=== PATIENT | female | born 1965 | race Hispanic/Latino ===

== ENCOUNTER 2023-11-01 16:46 | Emergency (ER) | payer MEDICAID ==
[~2023-11-01] VITALS: Ht 157.5 cm; Wt 54.9 kg
[2023-11-01 17:13] LABS: ADD UA MICROSCOPIC YES; APPEARANCE,URINE CLEAR (CLEAR); BILIRUBIN,URINE NEGATIVE (NEGATIVE); COLOR,URINE LIGHT-YELLOW (YELLOW); GLUCOSE, URINE (UA) NEGATIVE (NEGATIVE); KETONES,URINE NEGATIVE (NEGATIVE); LEUKOCYTE ESTERASE ,URINE NEGATIVE Leu/uL (NEGATIVE); NITRATE,URINE NEGATIVE (NEGATIVE); OCCULT BLOOD,URINE NEGATIVE (NEGATIVE); PROTEIN,URINE NEGATIVE (NEGATIVE); UROBILINOGEN,URINE 0.2 mg/dL (0.2-1.0)
[2023-11-01 17:13] LABS: BASOPHILS # (AUTO) 0.04 K/uL (0.00-0.20); BASOPHILS % (AUTO) 0.3 % (0.0-5.0); EOSINOPHILS # (AUTO) 0.21 K/uL (0.00-0.70); EOSINOPHILS % (AUTO) 1.5 % (0.0-8.0); HEMATOCRIT 43.9 % (36-48); IMMATURE GRANULOCYTE ABSOLUTE 0.05 K/uL (0-1); LYMPHOCYTES # (AUTO) 6.1 K/uL (1.0-4.8); LYMPHOCYTES % (AUTO) 42.7 % (21.0-51.0); MEAN CORPUSCULAR HEMOGLOBIN 31.6 pg (27.0-33.0); MEAN CORPUSCULAR HGB CONC 35.3 g/dL (32.0-36.0); MEAN CORPUSCULAR VOLUME 89.6 fL (79-99); MONOCYTES # (AUTO) 0.8 K/uL (0.1-1.0); MONOCYTES % (AUTO) 5.5 % (3.0-13.0); NEUTROPHILS # (AUTO) 7.1 K/uL (1.8-7.7); NEUTROPHILS % (AUTO) 49.6 % (40.0-77.0); PLATELET COUNT (AUTO) 350 K/uL (130-400); RED CELL DISTRIBUTION WIDTH 12.1 % (11.0-15.5); WHITE BLOOD COUNT (AUTO) 14.3 K/uL (4.8-10.8)
[2023-11-01 17:16] LABS: SQUAMOUS EPITHELIAL CELL,UR FEW /HPF (0-2); WBC,URINE 0-1 /HPF (0-1)
[2023-11-01 17:30] LABS: CREATININE 0.8 mg/dL (0.5-1.0); POTASSIUM 3.7 mmol/L (3.5-5.1)
[2023-11-01] MEDS: MAG/ALUM/SIMETH 30 ML UDCUP PO ONE (18:21)
[2023-11-01] MEDS: 0.9%NACL 1000ML 1,000 ML IV ONE (18:21)
[2023-11-01] MEDS: DICYCLOMINE HCL 10 MG/5 ML ML PO ONE (18:21)
[2023-11-01] MEDS: METOCLOPRAMIDE 10 MG/2 ML VIAL IVP ONE (18:21)
[2023-11-01] MEDS: FAMOTIDINE 20MG VIAL IV ONE (18:21)
[2023-11-01] MEDS: ONDANSETRON 4MG INJ IVP ONE (18:21)
[2023-11-01] MEDS: LIDOCAINE HCL 2% VISCOUS 15 ML UDCUP PO ONE (18:22)
[2023-11-01] MEDS: MORPHINE 4 MG SYG IVP ONE (18:22)
[2023-11-01] MEDS ORDERED: IOHEXOL-350 75 ML VIAL IV ONE (19:14)
[2023-11-01 20:02] VITALS: BP 160/79; PULSE 83; RESP 16; O2SAT 97
[2023-11-01] MEDS ORDERED: ACET-2079 PO ×2 (20:14→20:15)
[2023-11-01 20:33] LABS: BAND NEUTROPHILS % (MANUAL) 2 % (0-2); EOSINOPHILS % (MANUAL) 1 % (1-6); LYMPHOCYTES % (MANUAL) 29 % (22-44); MAN.DIFF COMMENT-IMPRESSION MANUAL DIFFERENTIAL; MONOCYTES % (MANUAL) 5 % (2-9); REACTIVE LYMPHOCYTES 6 % (0-0); SEGMENTED NEUTROPHILS % 57 % (40-70); TOTAL CELLS COUNTED 100
== END 2023-11-01 20:30 | disposition home or self-care (01) ==
LOC: EDH 16:46
DX: K52.9 Noninfective gastroenteritis and colitis, unspecified (principal); K57.92 Diverticulitis of intestine, part unspecified, without perforation or abscess without bleeding; I10 Essential (primary) hypertension
CPT/HCPCS: 99285; 74177; 96374; 96375; 96361; 80048; 85025; 81001; 36415; 93005; J7030; J2405; J2270; J2765; Q9967; S0028; J3490

== ENCOUNTER 2023-11-10 10:43 | Observation (INO) | payer MEDICAID ==
[2023-11-08 11:59] LABS: BASOPHILS # (AUTO) 0.04 K/uL (0.00-0.20); BASOPHILS % (AUTO) 0.4 % (0.0-5.0); EOSINOPHILS # (AUTO) 0.16 K/uL (0.00-0.70); EOSINOPHILS % (AUTO) 1.8 % (0.0-8.0); IMMATURE GRANULOCYTE ABSOLUTE 0.02 K/uL (0-1); LYMPHOCYTES # (AUTO) 4.3 K/uL (1.0-4.8); MEAN CORPUSCULAR HEMOGLOBIN 30.8 pg (27.0-33.0); MEAN CORPUSCULAR VOLUME 90.5 fL (79-99); MONOCYTES # (AUTO) 0.4 K/uL (0.1-1.0); MONOCYTES % (AUTO) 4.2 % (3.0-13.0); NEUTROPHILS # (AUTO) 4.2 K/uL (1.8-7.7); NEUTROPHILS % (AUTO) 46.4 % (40.0-77.0); PLATELET COUNT (AUTO) 323 K/uL (130-400); RED BLOOD CELL COUNT(AUTO) 4.64 MIL/uL (4.00-5.50); RED CELL DISTRIBUTION WIDTH 12.4 % (11.0-15.5); WHITE BLOOD COUNT (AUTO) 9.1 K/uL (4.8-10.8)
[2023-11-08 12:18] VITALS: BP 112/68; PULSE 61; RESP 18
[2023-11-08 13:34] LABS: CREATININE 0.8 mg/dL (0.5-1.0); POTASSIUM 4.6 mmol/L (3.5-5.1)
[~2023-11-10] VITALS: Ht 157.5 cm; Wt 55.2 kg
[~2023-11-10 10:43] MED LIST: ALBU18HF7 IH; AMLO-258 PO; CETI10TA57 PO; FAMO40TA7 PO; HYDR-3422 PO; LOSA100T59 PO; METO10TA3 PO; PANT40TA54 PO; PROM25TA7 PO; ROSU10TA28 PO; ZOLP10TA2 PO; [UNRECOGNIZED DRUG - OTHER] PO; diclofenac TP
[2023-11-10] MEDS: METRONIDAZOLE 500MG/100ML BAG 200 ML ONE (11:12)
[2023-11-10] MEDS: CEFAZOLIN SODIUM 2 GM VIAL ONE (11:12)
[2023-11-10] MEDS: LACTATED RINGERS 1000ML 1,000 ML IV ONE (11:13)
[2023-11-10 11:20] VITALS: BP 136/79; PULSE 104; RESP 18
[2023-11-10] MEDS: MEPERIDINE-PF 25 MG/ML SYG IVP ONE (17:04)
[2023-11-10] MEDS: MEPERIDINE-PF 25 MG/ML SYG ONE (18:09)
[2023-11-10] MEDS: ACETAMINOPHEN 1,000 MG/100 ML VIAL IV ONE (21:51)
[2023-11-10] MEDS ORDERED: PROPOFOL 10 MG/ML 20ML VIAL IV ONE (22:19)
[2023-11-10] MEDS ORDERED: ROCURONIUM BROMIDE 10MG/1ML 5ML VL ONE (22:19)
[2023-11-10] MEDS ORDERED: LIDOCAINE PF 100MG/5ML (2%) SYRINGE 5ML ONE (22:19)
[2023-11-10] MEDS ORDERED: FENTANYL CITRATE PF 50 MCG/1 ML 2ML VIAL ONE (22:20)
[2023-11-10] MEDS ORDERED: MIDAZOLAM HCL 1 MG/ML 2ML VIAL ONE (22:20)
[2023-11-10] MEDS ORDERED: KETAMINE 50MG/ML SYRINGE 50 MG/ML DISP.SYRIN ONE (22:21)
[2023-11-10] MEDS ORDERED: BUPIVACAINE/PF 0.5% 30ML VIAL ONE (22:26)
[2023-11-10] MEDS: BUPIVACAINE/PF 0.5% 30ML VIAL IV ONE (22:56)
[2023-11-10] MEDS ORDERED: EPHEDRINE SULFATE 50 MG/ML AMPULE ONE (23:06)
[2023-11-11] VITALS (25 sets, daily range): BP systolic 125–159; BP diastolic 61–81; PULSE 69–97; RESP 14–20; O2SAT 96–98
[2023-11-11] MEDS ORDERED: NEOSTIGMINE METHYLSULFATE 1MG/ML IV ONE (00:04)
[2023-11-11] MEDS ORDERED: ONDANSETRON 4MG INJ ONE (00:04)
[2023-11-11] MEDS ORDERED: GLYCOPYRROLATE 0.2 MG/ML 5 ML VIAL ONE (00:04)
[2023-11-11] MEDS ORDERED: MEPERIDINE-PF 25 MG/ML SYG ONE (00:08)
[2023-11-11] MEDS ORDERED: KETOROLAC 30MG VIAL (30MG/ML) ONE (00:08)
[2023-11-11] MEDS ORDERED: PROCHLORPERAZINE 10MG/2ML INJ IV PRN (00:30)
[2023-11-11] MEDS ORDERED: ONDANSETRON 4MG INJ IVP PRN (00:30)
[2023-11-11] MEDS ORDERED: KETOROLAC 30MG VIAL (30MG/ML) IV PRN (00:30)
[2023-11-11] MEDS: ONDANSETRON 4MG INJ ONE ×2 (00:41→01:01)
[2023-11-11] MEDS: MEPERIDINE-PF 25 MG/ML SYG ONE ×2 (00:42→01:00)
[2023-11-11] MEDS: METOCLOPRAMIDE 10 MG/2 ML VIAL ONE (01:01)
[2023-11-11] MEDS: HEPARIN 5,000 UNIT VIAL SQ SCH (03:08)
[2023-11-11] MEDS: HYDROMORPHONE 1 MG INJ IVP PRN (03:09)
[2023-11-11] MEDS: D5LR-20 MEQ KCL 1000 ML 1,000 ML IV SCH (03:10)
[2023-11-11] MEDS: HYDROCODONE/ACETAMINOPHEN 7.5/325 MG 15 ML UDCUP PO PRN (10:51)
== END 2023-11-11 14:35 | disposition home or self-care (01) ==
LOC: DAH 10:43 → 3AH 10:44 → DAH 11-11 01:04 → 3AH 11-11 01:05 → UNDOADMOB 11-11 01:05 → DAH 11-11 01:06
PROVIDERS: ADMIT Surgery; ATTEND Surgery
DX: K31.84 Gastroparesis (principal); R10.12 Left upper quadrant pain
CPT/HCPCS: 80048; 85025; 86850; 86900; 86901; 36415; 96374; 96375 ×2; 43235; 43659; 96376; 96372; 97161; 97116; A6260; A4663; J7030; A4215 ×2; J7120; J3010; J3490 ×7; J2250; J0665 ×2; J2175 ×4; J0690 ×2; G0168; A4223; A4222; A4221; A4600; G0378 ×13; J1170 ×3; J2405 ×3; J1885; J2710; J1644 ×2; J2765; J3480; J2001; J2704